=== PATIENT | male | born 1990 | race Caucasian/White ===

== ENCOUNTER 2025-07-10 15:47 | Emergency (ER) | payer OTHER, SELFPAY ==
[2025-07-10 16:16] VITALS: BP 111/55; PULSE 85; RESP 18; TEMP 36.6; O2SAT 97; BMI 32.7
--- NOTE | 2025-07-10 16:35 | ECG_ITS ---
Test Reason : ANXIETY Blood Pressure : */* mmHG Vent. Rate : 69 BPM Atrial Rate : 69 BPM P-R Int : 152 ms QRS Dur : 84 ms QT Int : 354 ms P-R-T Axes : 45 18 19 degrees QTcB Int : 379 ms Normal sinus rhythm Normal ECG No previous ECGs available Referred By: Tran Hinojosa Electronically Signed By: DEVON ACUÑA
[2025-07-10 16:49] LABS: MANUAL DIFF FLAG NO
[2025-07-10 16:51] LABS: Hematocrit 41.8 % (42.0-52.0); Hemoglobin 14.6 g/dl (14.0-18.0); Imm Gran Abs Auto 0.02 X10*3/uL (0.00-0.03); Imm Gran Pct Auto 0.3 % (0.0-0.4); Lymphocytes Absolute Auto 2.4 X10*3/uL (1.2-4.9); Mean Corpuscular HGB Conc 34.9 g/dl (31.0-36.0); Mean Corpuscular Hemoglobin 29.9 pg (27.0-33.0); Mean Corpuscular Volume 85.5 fL (80.0-98.0); NRBC Abs Auto 0.000 X10*3/uL (0.0-0.012); NRBC Pct Auto 0.0 /100WBC (0.0-0.2); Platelet Count 197 X10*3/uL (160-400); Red Blood Count 4.89 X10*6/uL (4.60-5.80); White Blood Count 6.7 X10*3/uL (4.8-10.8)
--- NOTE | 2025-07-10 17:09 | ED.GENADULT ---
HPI - General Adult General Chief complaint: General Medical Stated complaint: ? panic attack Time Seen by Provider: 07/10/25 16:51 History of Present Illness HPI narrative: Patient is a 34-year-old male with a history of anxiety attack in the. Patient stated he ate something and then felt hyperventilating pins and needle sensation arm and leg this is very similar to previous bouts the panic attack. He was about to take 0.5 of Ativan but was unable to take it because he did not bring it with him. Patient denies any fever chills. Gradually the symptoms subsided with time. Patient claims his about half gone. No fever no chills no chest pain. No history of CA in the past. Related Data Allergies Allergy/AdvReac Type Severity Reaction Status Date / Time No Known Allergies Allergy Verified 07/10/25 16:20 Review of Systems Review of Systems: Positive history of panic attacks Yes all other systems are reviewed and are negative PMFSH Past Medical History Attestation statement: The following information was validated with the patient. Social History Social History Smoked in Last 30 Days: No Use of substances other than those prescribed or required for medical reasons: No Advance Directives: No Advance Directives Information Provided: No Do you have a plan to hurt others: No Plan Physical Exam ED Exam Exam: Appearance: Alert. Oriented X3. No acute distress. Eyes: Pupils equal, round and reactive to light. ENT: Pharynx normal. Neck: Normal inspection. Neck supple. No lymph nodes noted. No crepitus CVS: Normal heart rate and rhythm. Pulses normal. Normal S1 and S2 Respiratory: No respiratory distress. Breath sounds normal. No Wheezing. No rales Abdomen: Soft and nontender. No rigidity. No distention. good BS x4 Skin: Skin warm and dry. Normal skin color. Normal skin turgor. Extremities: No lower extremity edema. Neurovascular intact to all extremities. No Lacerations. No Rash Neuro: Oriented X 3. No motor deficit. No sensory deficit. Moving all extermities. No slurred speech Vital Signs: Vital Signs - 24 hr 07/10/25 16:16 07/10/25 19:26 Temperature 97.8 F 96.9 F Pulse Rate 85 66 Respiratory Rate 18 16 Blood Pressure 111/55 L 118/66 Pulse Oximetry 97 99 Oxygen Delivery Method Room Air Room Air BMI result Body Mass Index 32.7 Medications Administered Discontinued Medications Generic Name Dose Route Start Last Admin Trade Name Freq PRN Reason Stop Dose Admin Lorazepam 0.5 mg 07/10/25 17:03 07/10/25 17:42 Lorazepam 0.5 Mg Tablet PO 07/10/25 17:04 0.5 mg ONCE ONE Administration Medical Decision Making Medical Decision Making [facility] Narrative: Patient's symptoms suggestive of panic attack. My interpretation patient's EKG showed a sinus rhythm heart rate is 70 MA QRS QTC normal no acute ST segment elevation. Patient's lab was normal. Electrolytes unremarkable. Patient's LFTs are normal. TSH normal. No evidence for hypo or hyperthyroid. After dose of Ativan patient's symptoms resolved. In no distress. Differential Diagnosis Differential Diagnoses: The differential diagnosis associated with the presentation includes Panic attack versus hypo hyperthyroid electrolyte disturbance anemia Admission/Observation Consideration of admission/observation: Escalation of care including admission/observation considered Lab Data [facility] Lab Attestation statement: I reviewed the patient's lab results. 07/10/25 16:46 07/10/25 16:46 Labs: Lab Results 07/10/25 Range/Units 16:46 WBC 6.7 (4.8-10.8) X10*3/uL RBC 4.89 (4.60-5.80) X10*6/uL Hgb 14.6 (14.0-18.0) g/dl Hct 41.8 L (42.0-52.0) % MCV 85.5 (80.0-98.0) fL MCH 29.9 (27.0-33.0) pg MCHC 34.9 (31.0-36.0) g/dl RDW 12.8 (11.0-16.0) % Plt Count 197 (160-400) X10*3/uL MPV 10.7 (9.4-12.4) fL Immature Gran % (Auto) 0.3 (0.0-0.4) % Neut % (Auto) 55.4 (45-73) % Lymph % (Auto) 35.7 (20-40) % [place]mort[place] % (Auto) 5.8 (2-11) % Eos % (Auto) 2.1 (0-4) % Baso % (Auto) 0.7 (0-2) % Lymph # (Auto) 2.4 (1.2-4.9) X10*3/uL [place] # (Auto) 0.4 (0.1-1.2) X10*3/uL Eos # (Auto) 0.1 (0.0-0.4) X10*3/uL Baso # (Auto) 0.1 (0.0-0.2) X10*3/uL Abs Immat Gran (auto) 0.02 (0.00-0.03) X10*3/uL Absolute Neuts (auto) 3.7 (2.0-8.3) x10*3/uL Absolute Nucleated RBC 0.000 (0.0-0.012) X10*3/uL Nucleated RBC % (auto) 0.0 (0.0-0.2) /100WBC Sodium 142 (135-145) mmol/L Potassium 3.8 (3.3-5.1) mmol/L Chloride 106 (96-108) mmol/L Carbon Dioxide 30 H (22-29) mmol/L Anion Gap 10 L (12-20) BUN 15 (9-16) mg/dL Creatinine 1.03 (0.5-1.4) mg/dL Estim Creat Clear Calc 109.8 Estimated GFR > 60 Random Glucose 111 (60-115) mg/dL Calcium 9.3 (8.4-10.2) mg/dL Total Bilirubin 1.0 (0.0-1.0) mg/dL AST 26 (5-37) U/L ALT 41 H (0-40) U/L Alkaline Phosphatase 67 (39-117) U/L Total Protein 6.8 (6.5-8.0) g/dL Albumin 4.5 (3.5-5.0) g/dL TSH 1.98 (0.32-4.0) uIU/mL Independent Interpretation I performed an independent interpretation of an: EKG (My interpretation patient's EKG as above) Social Determinants Patient?s care significantly limited by Social Determinants of Health including: Problems related to primary support group Discharge Plan Discharge Clinical Impression: Panic attack Patient Disposition: Home, Self-Care Instructions: Panic Attack (ED) Referrals: Physician,Nonstaff [Primary Care Provider, Medical] - 2 days Print Language: Lithuanian
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
--- OUTSIDE RECORDS SUMMARY | 2025-07-10 17:10 | XMS_ITS | Clinical Summary ---
Author Organization [facility] Address [address] [place] [address] Phone Care Team Providers [employer] Worker Name Role Phone Marcelo Gonzalez MD Primary Care Provider Allergies Active Allergy Reactions Criticality Noted Date Comments Sulfamethoxazole-Trimethoprim Rash Low 2024 Codeine Rash Low 05/11/2025 Medications atorvastatin (Lipitor) 20 MG tablet Take 20 mg by mouth daily. Active escitalopram (Lexapro) 10 MG tablet Take 10 mg by mouth daily. 05/10/20 09 Active testosterone cypionate (Depo-Testoste stephan) 100 MG/ML injection Inject 80 mg intramuscularly as directed 1 (one) time per week. Active Loratadine (Claritin) 10 MG capsule Take 10 mg by mouth daily. 05/10/20 10 Active Multiple Vitamins-Heard als (Bariatric Fusion) chewable tablet Chew 1 tablet daily. Active calcium-cholec alciferol-zinc (Viactiv Calcium Immune) 650-20-5.5 MG-MCG-MG per chewable tablet Chew 2 tablets daily. Active ferrous sulfate 325 (65 Fe) MG tablet Take 325 mg by mouth Daily with breakfast. Active Active Problems Problem Noted Date Diagnosed Date Class 1 obesity due to exces s calories with serious comorbidity and body mass index (BMI) of 30.0 to 30.9 in adult 05/11/2025 Assessment & Plan (05/11/2025 8:29 AM EDT): Isaac has lost a total of 79 lbs since surgery and 112.8 lbs in total. - reiterated importance of following bariatric rules - stressed the importance of high protein and vegetable intake in meals - talked to patient about exercise routine and recommended body weight/resistance training in addition to his walking Postoperative intestinal malabsorption (HHS/HCC) 05/11/2025 Assessment & Plan (05/11/2025 8:25 AM EDT): - patient did not have labs done for today's visit; they were due for a full panel - labs pulled in office; we will contact patient with any changes they need to make to their current vitamin regimen. - he is currently taking 1 chewable bariatric MVI (chewy not wafer), iron 325 mg and 2 viactiv calcium chews Exercise counseling 05/11/2025 Assessment & Plan (05/11/2025 8:26 AM EDT): - stressed importance of exercise: this is important for many reasons; not only for caloric burn but also for muscle building/retention for maintaining weight loss and for metabolism support. History of sleeve gastrectomy 05/11/2025 Assessment & Plan (05/11/2025 8:26 AM EDT): Isaac is 6 years s/p VSG - congratulated on his weight loss! - continue with current bariatric vitamins. importance of vitamin compliance was stressed- vitamins will be required of his life to prevent deficiencies. - was reminded not to take NSAIDs, aspirin, oral steroids, tobacco, nicotine or use alcohol frequently; all these can lead to gastritis, ulcer or leak. - will have nutrition follow up with the bariatric dietitian at today. Nutrition recommendations were reinforced. - encouraged to continue prioritizing protein, avoiding liquid calories and eating and drinking. Encounters Date Type Department Care Team Description 05/19/2025 Telephone [facility] [address] [place] [phone] Erica Ye LPN RBC Folate 05/11/2025 8:30 AM EDT Clinical Support [facility] [address] [place] [phone] Nutritional counseling (Primary Dx); Obesity without serious comorbidity, unspecified class, unspecified obesity type 05/11/2025 8:00 AM EDT Office Visit [facility] [address] [place] [phone] Larissa Thomas PA Postoperative intestinal malabsorption (HHS/HCC) (Primary Dx); Class 1 obesity due to excess calories with serious comorbidity and body mass index (BMI) of 30.0 to 30.9 in adult; Exercise counseling; History of sleeve gastrectomy 05/10/2025 Travel from Last 3 Months Family History Medical History Relation Name Comments Alcohol abuse Brother Dread Asthma Brother Dread Mental illness Brother Dread Diabetes Father Tano Hyperlipidemia Father Tano Hypertension Father Tano Cancer Father's Sister Modesta Cancer Maternal Grandfather Clement Arthritis Maternal Grandmother Malgorzata Diabetes Maternal Grandmother Malgorzata Arthritis Mother's Sister Keely Diabetes Paternal Grandmother Shantel Relation Name Status Comments Brother Dread Alive Father Tano Alive Father's Sister Modesta Alive Maternal Grandfather Clement Alive Maternal Grandmother Malgorzata Alive Mother's Sister Keeyl Alive Paternal Grandmother Shantel Alive Social History Tobacco Use Types Packs/Day Years Used Date Smoking Tobacco: Former Cigarettes Q uit: 08/07/2018 Cigars Smokeless Tobacco: Never Tobacco Cessation:Counseling Given: Not Answered Alcohol Use Standard Drinks/Week Comments Never 0 (1 standard drink = 0.6 oz pur e alcohol) Sex and Gender Information Value Date Recorded Sex Assigned at Not on file Legal Sex Male 10:25 PM EST Gender Identity Not on file Sexual Orientation Not on file Last Filed Vital Signs Vital Sign Reading Time Taken Comments Blood Pressure 100/71 05/11/2025 7:58 AM EDT Pulse 62 05/11/2025 7:58 AM EDT Temperature 36.4 C (97.6 F) 05/11/2025 7:58 AM EDT Respiratory Rate 18 05/11/2025 7:58 AM EDT Oxygen Saturation - - Inhaled Oxygen Concentration - - Weight 91 kg (200 lb 9.6 oz) 05/11/2025 8:37 AM EDT Height 172.7 cm (5' 8 ) 05/11/2025 8:37 AM EDT Body Mass Index 30.5 05/11/2025 8:37 AM EDT Plan of Treatment Upcoming Encounters Date Type Department Care Team (Late st Contact Info) Description 05/12/2026 8:00 AM EDT Office Visit [facility] 1 [facility] [address] [place] [phone] Larissa Thomas PA 1 [facility] [address] [place] [address] 05/12/2026 9:30 AM EDT Clinical Support [facility] 1 [facility] [address] [place] [phone] Brinda Garcia, JUAN RAMON [address] [address] Health Maintenance Due Date Last Done Comments Lipid Panel 1989 MMR Vaccines (1 of 1 - Standard series) 1990 Varicella Vaccines (1 of 2 - 13+ 2-dose series) 2002 Hepatitis C Screening 2007 Hepatitis B Vaccines (1 of 3 - 19+ 3-dose series) 2008 Influenza Vaccine (#1) 2025 , 09/01/2023, 08/09/2022, Additional history exists Diabetes: Hemoglobin A1C 05/11/2026 05/11/2025 TD Vaccine (21+ Years) 01/06/2029 01/06/2019, 2018 Zoster Vaccines (1 of 2) 2039 HPV Vaccines Completed 11/22/2020, 10/2019, 05/20/2020 Hepatitis A Vaccines Aged Out 02/15/2025, 07/27/20 24 No longer eligible based on patient's age to complete this topic HIB Vaccines Aged Out No longer eligi ble based on patient's age to complete this topic IPV Vaccines Aged Out No longer eligi ble based on patient's age to complete this topic Meningococcal B Vaccine Aged Out No l onger eligible based on patient's age to complete this topic Meningococcal Vaccine Aged Out No daniel champ eligible based on patient's age to complete this topic Pneumococcal Vaccine: Pediatrics (0 to 5 Years) and At-Risk Patients (6 to 49 Years) Aged Out No longer eligible based on patient's age to complete this topic Rotavirus Vaccines Aged Out No longer eligible based on patient's age to complete this topic Procedures Procedure Name Priority Date/Time Associated Diagnosis Comments IRON PROFILE (WITH FERRITIN)-PAULETTE/[facility]/ [facility] Routine 05/11/2025 8:37 AM EDT Postoperative intestinal malabsorption (HHS/HCC) Class 1 obesity due to excess calories with serious comorbidity and body mass index (BMI) of 30.0 to 30.9 in adult Exercise counseling History of sleeve gastrectomy AUTOMATED DIFFERENTIAL Routine 05/11/2025 8:37 AM EDT Postoperative intestinal malabsorption (HHS/HCC) COMPLETE BLOOD COUNT Routine 05/11/2025 8:37 AM EDT Postoperative intestinal malabsorption (HHS/HCC) CBC AUTO DIFFERENTIAL Routine 05/11/2025 8:37 AM EDT Postoperative intestinal malabsorption (HHS/HCC) COMPREHENSIVE METABOLIC PANEL Routine 05/11/2025 8:37 AM EDT Postoperative intestinal malabsorption (HHS/HCC) HEMOGLOBIN A1C WITH EAG Routine 05/11/2025 8:37 AM EDT Postoperative intestinal malabsorption (HHS/HCC) VITAMIN B12 Routine 05/11/2025 8:37 AM EDT Postoperative intestinal malabsorption (HHS/HCC) VITAMIN D 25-HYDROXY Routine 05/11/2025 8:37 AM EDT Postoperative intestinal malabsorption (HHS/HCC) VITAMIN B1 (THIAMINE), BLOOD-[facility] Routine 05/11/2025 8:37 AM EDT Postoperative intestinal malabsorption (HHS/HCC) PHOSPHORUS Routine 05/11/2025 8:37 AM EDT Postoperative intestinal malabsorption (HHS/HCC) MAGNESIUM Routine 05/11/2025 8:37 AM EDT Postoperative intestinal malabsorption (HHS/HCC) from Last 3 Months Results * (ABNORMAL) Automated Differential (05/11/2025 8:37 AM EDT) Lymphocytes % 48.9(H) 16.0 - 43.5 % 05/11/2025 3:16 PM [facility] Monocytes % 6.3 4.5 - 12.5 % 05/11/2025 3:16 PM [facility] Neutrophils % 40.6(L) 43.3 - 76.6 % 05/11/2025 3:16 PM [facility] Eosinophils % 3.4 0.6 - 7.9 % 05/11/2025 3:16 PM [facility] Basophils % 0.6 0.1 - 1.2 % 05/11/2025 3:16 PM [facility] Immature Granulocytes % 0.2 <=1.0 % 05/11/2025 3:16 PM [facility] Absolute Neutrophils 2.50 1.78 - 5.38 10*3/uL 05/11/2025 3:16 PM [facility] Absolute Lymphocytes 3.02(H) 1.00 - 3.00 10*3/uL 05/11/2025 3:16 PM [facility] Absolute Monocytes 0.39 <=1.00 10*3/uL 05/11/2025 3:16 PM [facility] Absolute Eosinophils 0.21 <=0.50 10*3/uL 05/11/2025 3:16 PM [facility] Absolute Basophils 0.04 <=0.10 10*3/uL 05/11/2025 3:16 PM [facility] Absolute Immature Granulocytes <0.03 <=1.00 10*3/uL 05/11/2025 3:16 PM [facility] NRBC % 0.0 <=0.2 % 05/11/2025 3:16 PM [facility] Absolute NRBC 0.000 <=0.012 10*3/uL 05/11/2025 3:16 PM EDT [facility] Blood Venous blood / Unknown Venipuncture / Unknown 05/11/2025 8:37 AM EDT 05/11/2025 8:37 AM EDT Larissa ARREOLA LAB BLOOD ORDERABLES Final Resul t [facility] [address] [place] [phone], * Complete Blood Count (05/11/2025 8:37 AM EDT) WBC 6.2 4.2 - 9.1 10*3/uL 05/11/2025 3:16 PM EDT [facility] RBC 5.18 4.63 - 6.08 10*6/uL 05/11/2025 3:16 PM [facility] Hemoglobin 15.1 13.7 - 17.5 g/dL 05/11/2025 3:16 PM [facility] Hematocrit 44.7 40.1 - 51.0 % 05/11/2025 3:16 PM [facility] MCV 86.3 79.3 - 95.5 fL 05/11/2025 3:16 PM [facility] MCH 29.2 25.6 - 33.2 pg 05/11/2025 3:16 PM [facility] MCHC 33.8 32.3 - 36.5 g/dL 05/11/2025 3:16 PM [facility] RDW 12.9 11.6 - 14.4 % 05/11/2025 3:16 PM [facility] Platelet Count 214 163 - 386 10*3/uL 05/11/2025 3:16 PM T [facility] MPV 11.1 9.4 - 12.4 fL 05/11/2025 3:16 PM T [facility] Blood Venous blood / Unknown Venipuncture / Unknown 05/11/2025 8:37 AM EDT 05/11/2025 8:37 AM EDT Larissa ARROELA LAB BLOOD ORDERABLES Final Resul t Performing Organization Address City/[facility]/ZIP Co de Phone Number [facility] [address] [place] [address], * Iron Profile (with Ferritn) - PAULETTE/MMEC/[facility] (05/11/2025 8:37 AM EDT) Iron 98 50 - 212 ug/dL 05/11/2025 4:02 PM EDT [facility] Unsaturated Iron Binding Capacity 189 155 - 355 ug/dL 05/11/2025 4:02 PM EDT [facility] Total Iron Binding Capacity, Calculated 287 250 - 450 ug/dL 05/11/2025 4:02 PM EDT [facility] Iron Saturation w/ Calc TIBC 34 20 - 55 % 05/11/2025 4:02 PM EDT [facility] Ferritin 179.4 23.9 - 336.2 ng/mL 05/11/2025 4:02 PM EDT [facility] Blood Venous blood / Unknown Venipuncture / Unknown 05/11/2025 8:37 AM EDT 05/11/2025 8:37 AM EDT Larissa ARREOLA LAB BLOOD ORDERABLES Final Resul t Performing Organization Address [facility]/ZIP Co de Phone Number [facility] [address] [place] [address], * Vitamin B1 (Thiamine), Blood-[facility] (05/11/2025 8:37 AM EDT) [facility] VITAMIN B1 WHL BLD 152.5 66.5 - 200.0 nmol/L 05/15/2025 1:05 AM EDT [facility] Blood Venous blood / Unknown Venipuncture / Unknown 05/11/2025 8:37 AM EDT 05/11/2025 8:37 AM EDT Narrative [facility] - 05/15/2025 1:05 AM EDT Test(s) [id number]. B1, Whole Blood was developed and its performance characteristics determined by [facility]. It has not been cleared or approved by the Food and Drug Administration. Performed at: 01 - [address] [id number] Heel Slicker: Jermaine Gregorio MD, Phone: [phone] Larissa ARREOLA LAB BLOOD ORDERABLES Final Resul t Performing Organization Address City/[facility]/ZIP Co de Phone Number [facility] See Comment * (ABNORMAL) Hemoglobin A1C With EAG (05/11/2025 8:37 AM EDT) Hemoglobin A1C 5.7(H) 4.8 - 5.6 % 05/11/2025 3:57 PM EDT [facility] Comment: Hemoglobin (Hgb) A1C Reference Ranges: 4.8% to 5.6% - Normal 5.7% to 6.4% - Increased risk for Diabetes mellitus > 6.4% - Diabetes mellitus < 7.0% - Glycemic control goal for Diabetes Reference range is reported in accordance with ADA recommendations. ESTIM AVG GLUC (EAG) 117 mg/dL 05/11/2025 3:57 PM EDT [facility] Comment: No established reference range for Estimated Average Glucose Blood Venous blood / Unknown Venipuncture / Unknown 05/11/2025 8:37 AM EDT 05/11/2025 8:37 AM EDT Larissa ARREOLA LAB BLOOD ORDERABLES Final Resul t Performing Organization Address City/[facility]/ZIP Co de Phone Number [facility] [address] [place] [phone], * Vitamin D 25-Hydroxy (05/11/2025 8:37 AM EDT) Vitamin D, 25-Hydroxy 69.1 30.0 - 100.0 ng/mL 05/11/2025 4:04 PM EDT [facility] Comment: Vitamin D Status Deficient <20 ng/mL Insufficient 20-<30 ng/mL Sufficient 30-100 ng/mL Upper Safety Limit >100 ng/mL Blood Venous blood / Unknown Venipuncture / Unknown 05/11/2025 8:37 AM EDT 05/11/2025 8:37 AM EDT Larissa ARREOLA LAB BLOOD ORDERABLES Final Resul t Performing Organization Address [facility]/ZIP Co de Phone Number [facility] [address] [place] [address], * Phosphorus (05/11/2025 8:37 AM EDT) Phosphorus 3.4 2.5 - 5.0 mg/dL 05/11/2025 3:36 PM EDT [facility] Blood Venous blood / Unknown Venipuncture / Unknown 05/11/2025 8:37 AM EDT 05/11/2025 8:37 AM EDT Larissasherin ARREOLA LAB BLOOD ORDERABLES Final Resul t Performing Organization Address [facility] Co de Phone Number [facility] [address] [place] [address], * Magnesium (05/11/2025 8:37 AM EDT) Magnesium 2.2 1.5 - 2.6 mg/dL 05/11/2025 3:36 PM EDT [facility] Blood Venous blood / Unknown Venipuncture / Unknown 05/11/2025 8:37 AM EDT 05/11/2025 8:37 AM EDT Larissa [facility] LAB BLOOD ORDERABLES Final Resul t Performing Organization Address [facility] Co de Phone Number [facility] [address] [place] [address], [place] [phone] * (ABNORMAL) Vitamin B12 (05/11/2025 8:37 AM EDT) Vitamin B12 1,167(H) 180 - 914 pg/mL 05/11/2025 4:04 PM [facility] Blood Venous blood / Unknown Venipuncture / Unknown 05/11/2025 8:37 AM EDT 05/11/2025 8:37 AM EDT Larissa ARREOLA LAB BLOOD ORDERABLES Final Resul t [facility] [address] [place] [address], * (ABNORMAL) Comprehensive Metabolic Panel (05/11/2025 8:37 AM EDT) Sodium 140 136 - 145 mmol/L 05/11/2025 3:36 PM [facility] Potassium 4.4 3.5 - 5.1 mmol/L 05/11/2025 3:36 PM [facility] Chloride 104 98 - 107 mmol/L 05/11/2025 3:36 PM [facility] Carbon Dioxide 31 21 - 31 mmol/L 05/11/2025 3:36 PM [facility] Blood Urea Nitrogen (BUN) 22 7 - 25 mg/dL 05/11/2025 3:36 PM [facility] Creatinine 0.8 0.6 - 1.3 mg/dL 05/11/2025 3:36 PM [facility] Glucose 82 70 - 105 mg/dL 05/11/2025 3:36 PM [facility] Calcium 9.3 8.6 - 10.3 mg/dL 05/11/2025 3:36 PM [facility] Anion Gap 5 5 - 15 mmol/L 05/11/2025 3:36 PM [facility] BUN/Creatinine Ratio 27.5(H) 6.7 - 23.9 05/11/2025 3:36 PM [facility] eGFR 118 >=60 mL/min/1. 73m*2 05/11/2025 3:36 PM [facility] Comment: *This eGRF calculation is based on the [id number] creatinine equations for adults designed to estimate glomerular filtration rate (eGFR) without race adjustment factors. *This eGFR results are indexed to standard body surface area (BSA) 1.73 M(2). *eGFR results should only be used for adult patients >=18 years old. *Use of nonindexed eGFR values (mL/min) should be considered for drug dosing decisions. For non-binary individuals or unknown sex, the equation for female sex is used to calculate the estimated glomerular filtration rate (eGFR). Calculated Osmolality 281.8 273.0 - 287.0 05/11/2025 3:36 PM T [facility] Total Protein 6.9 6.4 - 8.9 g/dL 05/11/2025 3:36 PM [facility] Albumin 4.6 3.5 - 5.7 g/dL 05/11/2025 3:36 PM [facility] Bilirubin, Total 0.7 <=1.0 mg/dL 05/11/2025 3:36 PM [facility] Alanine Aminotransferase (ALT) 40 7 - 52 U/L 05/11/2025 3:36 PM [facility] Aspartate Aminotransferase (AST) 22 13 - 39 U/L 05/11/2025 3:36 PM [facility] Alkaline Phosphatase 64 34 - 104 U/L 05/11/2025 3:36 PM [facility] A/G Ratio 2.0 1.0 - 2.2 05/11/2025 3:36 PM [facility] Blood Venous blood / Unknown Venipuncture / Unknown 05/11/2025 8:37 AM EDT 05/11/2025 8:37 AM EDT us Larissa ARREOLA LAB BLOOD ORDERABLES Final Resul t [facility] [address] [place] [address], from Last 3 Months Insurance [facility] Care Teams [employer] Worker Relationship Specialty Start Date End Date Marcelo Gonzalez MD [address] [place] [phone] PCP - General 04/21/25
[2025-07-10 17:13] LABS: Alanine Aminotransferase 41 U/L (0-40); Albumin Level 4.5 g/dL (3.5-5.0); Alkaline Phosphatase 67 U/L (39-117); Anion Gap 10 (12-20); Aspartate Amino Transferase 26 U/L (5-37); Blood Urea Nitrogen 15 mg/dL (9-16); Calcium 9.3 mg/dL (8.4-10.2); Carbon Dioxide 30 mmol/L (22-29); Chloride 106 mmol/L (96-108); Creatinine Clr Calc Pharmacy 109.8; Estimated Glomerular Filt Rate > 60; Potassium 3.8 mmol/L (3.3-5.1); Sodium 142 mmol/L (135-145); Total Protein 6.8 g/dL (6.5-8.0)
[2025-07-10 19:26] VITALS: BP 118/66; PULSE 66; RESP 16; TEMP 36.1; O2SAT 99
[2025-07-10 19:38] VITALS: BP 118/66; PULSE 66; RESP 16; TEMP 36.1; O2SAT 99
== END 2025-07-10 19:39 | disposition home or self-care (01) ==
PROVIDERS: Physician Assistant Medical; Emergency Provider Emergency Medicine Emergency Medical Services
DX: F41.0 Panic disorder [episodic paroxysmal anxiety] (principal); R06.4 Hyperventilation; R20.2 Paresthesia of skin
CPT/HCPCS: 36415; 80053; 84443; 85025; 93005; 99284

== ENCOUNTER → 2025-07-10 16:35 | Outpatient (BNV) | payer OTHER, SELFPAY | PROVIDERS: Emergency Provider Emergency Medicine Emergency Medical Services; Visit Provider Internal Medicine | DX: F41.9 Anxiety disorder, unspecified (principal) | CPT/HCPCS: 93010 ==